=== PATIENT | male | born 1995 | race African-American/Black ===

== ENCOUNTER 2017-06-17 12:43 | Emergency (ER) | payer SELFPAY ==
[~2017-06-17] VITALS: Ht 188 cm; Wt 81.6 kg
--- NOTE | 2017-06-17 12:50 | PHYS DOC ---
Adult General Chief Complaint Chief Complaint: DENTAL PROBLEM HPI HPI Patient is a 22 year old M who presents with dental pain over the past 3-4 months with worsening over the past 2-3 weeks. He states that his pain is only present when eating or drinking. He has no pain at rest. He has no other associated symptoms. He has no other exacerbating or relieving factors. Review of Systems Review of Systems Constitutional: Denies fever or chills [] Eyes: Denies change in visual acuity, redness, or eye pain [] HENT: Denies nasal congestion or sore throat [] Respiratory: Denies cough or shortness of breath [] Cardiovascular: No additional information not addressed in HPI [] GI: Denies abdominal pain, nausea, vomiting, bloody stools or diarrhea [] : Denies dysuria or hematuria [] Musculoskeletal: Denies back pain or joint pain [] Integument: Denies rash or skin lesions [] Neurologic: Denies headache, focal weakness or sensory changes [] Endocrine: Denies polyuria or polydipsia [] All other systems were reviewed and found to be within normal limits, except as documented in this note. Family History Family History No pertinent family medical history reported Current Medications Current Medications Current medications reviewed Physical Exam Physical Exam Constitutional: Well developed, well nourished, no acute distress, non-toxic appearance. [] HENT: Normocephalic, atraumatic, poor dentition cavity was noted in the right lower molar without surrounding erythema or other signs of infection. No tenderness to palpation was noted Eyes: EOMI, conjunctiva normal, no discharge. [] Neck: Normal range of motion, no tenderness, supple, no stridor. [] Cardiovascular:Heart rate regular rhythm, Lungs & Thorax: Bilateral breath sounds clear to auscultation [] Extremities: No tenderness, no cyanosis, no clubbing, ROM intact, no edema. [] Neurologic: Alert and oriented X 3, normal motor function, normal sensory function, no focal deficits noted. [] Psychologic: Affect normal, judgement normal, mood normal. [] Current Patient Data Vital Signs Vital Signs Date Time Temp Pulse Resp B/P (MAP) Pulse Ox O2 Delivery O2 Flow Rate FiO2 06/17/17 12:53 97.5 55 16 100 Room Air EKG EKG [] Radiology/Procedures Radiology/Procedures [] Course & Med Decision Making Course & Med Decision Making Pertinent Labs and Imaging studies reviewed. (See chart for details) [] Dragon Disclaimer Dragon Disclaimer This electronic medical record was generated, in whole or in part, using a voice recognition dictation system. Departure Departure: Impression: Primary Impression: Simple dental cavity Disposition: HOME, SELF-CARE Condition: STABLE Patient Instructions: Dental Caries Additional Instructions: Jian was seen in the emergency department for dental pain. No emergency medical condition was found on history or physical exam. He was found to have a cavity. He was encouraged to follow up with a dentist as soon as possible for further management. LILIANA ROWLAND MD Jun 17, 2017 12:50
[2017-06-17 13:25] VITALS: BP 112/69
== END 2017-06-17 13:28 | disposition home or self-care (01) ==
LOC: ER 12:43
DX: K02.9 Dental caries, unspecified (principal)
CPT/HCPCS: 99281

== ENCOUNTER 2017-07-21 21:16 | Emergency (ER) | payer OTHER ==
[~2017-07-21] VITALS: Ht 185.4 cm; Wt 85.3 kg
--- NOTE | 2017-07-21 22:20 | PHYS DOC ---
Past History Past Medical History: No Pertinent History Past Surgical History: No Surgical History Alcohol Use: None Drug Use: None Adult General Chief Complaint Chief Complaint: LACERATION/AVULSION HPI HPI Patient is a 22 year old male who presents with complaint of injury to the right index finger. The patient accidentally cut the lateral tip of the right index finger while at work approximately 2 hours prior to arrival. Bleeding was controlled prior to arrival. The patient states he is up-to-date on tetanus. Patient denies any other injuries. Patient states that the wound is painful states he has full range of motion of the right index finger. Patient did not visualize any bone or tendon in the wound. Review of Systems Review of Systems Constitutional: Denies fever or chills [] Eyes: Denies change in visual acuity, redness, or eye pain [] HENT: Denies nasal congestion or sore throat [] Respiratory: Denies cough or shortness of breath [] Cardiovascular: Denies chest pain or edema[] GI: Denies abdominal pain, nausea, vomiting, bloody stools or diarrhea [] : Denies dysuria or hematuria [] Musculoskeletal: Denies back pain or joint pain [] Integument: Wound to right index finger[] Neurologic: Denies headache, focal weakness or sensory changes [] All other systems were reviewed and found to be within normal limits, except as documented in this note. Allergies Allergies Allergies Coded Allergies Type Severity Reaction Last Updated Verified No Known Drug Allergies 06/17/17 No Physical Exam Physical Exam Constitutional: Alert, afebrile, no acute distress. [] HENT: Normocephalic, atraumatic, bilateral external ears normal, oropharynx moist, no oral exudates, nose normal. [] Eyes: PERRLA, EOMI, conjunctiva normal, no discharge. [] Neck: Normal range of motion, no tenderness, supple, no stridor. [] Cardiovascular:Heart rate regular rhythm, no murmur [] Lungs & Thorax: Bilateral breath sounds clear to auscultation [] Abdomen: Bowel sounds normal, soft, no tenderness, no masses, no pulsatile masses. [] Skin: Warm, dry, no erythema, no rash. [] Back: No tenderness, no CVA tenderness. [] Extremities: Avulsion wound to the lateral aspect of right index finger measuring 2 x 1.5 cm, no visualized bone or tendon, No cyanosis, no clubbing, ROM intact, no edema. [] Neurologic: Alert and oriented X 3, normal motor function, normal sensory function, no focal deficits noted. [] Current Patient Data Vital Signs Vital signs were reviewed and are stable Lab Results Not performed EKG EKG Not performed[] Radiology/Procedures Radiology/Procedures Not performed[] Course & Med Decision Making Course & Med Decision Making Pertinent Labs and Imaging studies reviewed. (See chart for details) Patient has an avulsion injury which does not require suturing at this time. The x-ray was applied to the wound to help induce hemostasis. Patient's wound was treated and dressed in the emergency department. Patient prescribed Bactroban for continued outpatient treatment. Advised return to the emergency department for any worsening symptoms. Patient was understanding and agreement with treatment plan. Dragon Disclaimer Dragon Disclaimer This electronic medical record was generated, in whole or in part, using a voice recognition dictation system. Departure Departure: Impression: Primary Impression: Fingertip avulsion Disposition: HOME, SELF-CARE Condition: IMPROVED Referrals: PCP,UNKNOWN (PCP) Patient Instructions: Fingertip Injuries and Amputations Additional Instructions: Return to emergency department for any worsening symptoms. Scripts Mupirocin (MUPIROCIN) 22 Gm Oint...g. 1 MARCELO TP BID, #22 GM with dressing changes Prov: NIKKI GONZALEZ MD 07/21/17 Problem Qualifiers Primary Impression: Fingertip avulsion Encounter type: initial encounter Qualified Codes: S61.209A - Unspecified open wound of unspecified finger without damage to nail, initial encounter NIKKI GONZALEZ MD Jul 21, 2017 22:19
[2017-07-21] MEDS ORDERED: MUPI22OI2 TP (22:52)
[2017-07-21] MEDS ORDERED: MUPIROCIN 2% TOPICAL OINTMENT 22GM TUBE. TP ONE (23:09)
[2017-07-21] MEDS: MUPIROCIN 2% TOPICAL OINTMENT 22GM TUBE. TP ONE (23:10)
== END 2017-07-21 23:10 | disposition home or self-care (01) ==
LOC: ER 21:16
DX: S61.300A Unspecified open wound of right index finger with damage to nail, initial encounter (principal); W45.8XXA Other foreign body or object entering through skin, initial encounter; Y93.89 Activity, other specified; Y99.8 Other external cause status; Y92.89 Other specified places as the place of occurrence of the external cause
CPT/HCPCS: 99283

== ENCOUNTER 2018-01-07 10:22 | Emergency (ER) | payer SELFPAY ==
[~2018-01-07] VITALS: Ht 185.4 cm; Wt 81.6 kg
[~2018-01-07 10:22] MED LIST: MUPI22OI2 TP
[2018-01-07] MEDS ORDERED: IBUPROFEN 800 MG TABLET. PO ONE (11:08)
--- NOTE | 2018-01-07 11:25 | PHYS DOC ---
Past History Past Medical History: No Pertinent History Past Surgical History: No Surgical History Smoking: Non-smoker Alcohol Use: None Drug Use: None Adult General Chief Complaint Chief Complaint: headache, cough and congestion, fever [facility] HPI Patient is a 22 year old male who presents with complaining of headache, myalgia , subjective fever and chills, nonproductive cough, nausea and posttussive vomiting for the last 3 days. Patient states he had couple episodes of vomiting after cough and complaining of left lower chest wall pain during cough. He had [id number] Advil and NyQuil with mild improvement of his condition. Patient denies sick contact, diarrhea, urinary symptom, neck pain, sore throat and earache. Review of Systems Review of Systems Constitutional: Denies fever or chills [] Eyes: Denies change in visual acuity, redness, or eye pain [] HENT: Nasal congestion, denies sore throat Respiratory: Reports cough and shortness of breath Cardiovascular: No additional information not addressed in HPI [] GI: Denies abdominal pain, bloody stools or diarrhea, reports nausea and vomiting[] : Denies dysuria or hematuria [] Musculoskeletal: Denies back pain or joint pain [] Integument: Denies rash or skin lesions [] Neurologic: Reports headache, denies focal weakness or sensory changes [] Endocrine: Denies polyuria or polydipsia [] All other systems were reviewed and found to be within normal limits, except as documented in this note. Current Medications Current Medications Current Medications Medications (Trade) Dose Ordered Sig/Jeniffer Start Time Stop Time Status Last Admin Dose Admin Ibuprofen (Motrin) 800 mg STK-MED ONCE 01/07/18 11:08 01/07/18 11:09 DC Allergies Allergies Allergies Coded Allergies Type Severity Reaction Last Updated Verified No Known Drug Allergies 06/17/17 No Physical Exam Physical Exam Constitutional: Well developed, well nourished, mild distress, non-toxic appearance, afebrile. [] HENT: Normocephalic, atraumatic, bilateral external ears normal, oropharynx moist, pharyngeal erythema without enlarged tonsils, no oral exudates, nose normal. [] Eyes: PERRLA, EOMI, conjunctiva normal, no discharge. [] Neck: Normal range of motion, no tenderness, supple, no stridor. [] Cardiovascular:Heart rate regular rhythm, no murmur [] Lungs & Thorax: Bilateral breath sounds clear to auscultation [] Abdomen: Bowel sounds normal, soft, no tenderness, no masses, no pulsatile masses. [] Skin: Warm, dry, no erythema, no rash. [] Back: No tenderness, no CVA tenderness. [] Extremities: No tenderness, no cyanosis, no clubbing, ROM intact, no edema. [] Neurologic: Alert and oriented X 3, normal motor function, normal sensory function, no focal deficits noted. [] Psychologic: Affect normal, judgement normal, mood normal. [] Current Patient Data Vital Signs Vital Signs Date Time Temp Pulse Resp B/P (MAP) Pulse Ox O2 Delivery O2 Flow Rate FiO2 01/07/18 10:53 98.6 85 22 100 Room Air EKG EKG [] Radiology/Procedures Radiology/Procedures [] Course & Med Decision Making Course & Med Decision Making Pertinent Lab reviewed. (See chart for details) discharge: I've spoken with the patient and/or caregivers. I've explained the patient's condition, diagnosis and treatment plan based on information available to me at this time. I've answered the patient's and/or caregivers questions and addressed any concerns. The patient and/or caregivers have a good understanding the patient's diagnosis, condition and treatment plan as can be expected at this point. Vital signs have been stabilized. The patient's condition is stable for discharge from the emergency department. The patient will pursue further outpatient evaluation with her primary care provider or other designated consulting physician as outlined in the discharge instructions. Patient and/or caregivers are agreeable to this plan of care and follow-up instructions have been explained in detail. The patient and/or caregivers have received these instructions in written format and expressed understanding of these discharge instructions. The patient and her caregivers are aware that if any significant change in condition or worsening of symptoms should prompt him to immediately return to this of the closest emergency department. If an emergent department is not readily available I would encourage him to call 911. Shadi Disclaimer Shadi Disclaimer This electronic medical record was generated, in whole or in part, using a voice recognition dictation system. Departure Departure: Impression: Primary Impression: Upper respiratory infection, viral Disposition: HOME, SELF-CARE (at 1200) Condition: STABLE Referrals: PCP,NO (PCP) Patient Instructions: Upper Respiratory Infection, Adult Additional Instructions: Drink plenty of liquids Follow-up with your primary care physician in 3-5 days Return to ER if not getting better Scripts Benzonatate (TESSALON PERLE) 100 Mg Capsule 1 CAP PO TID for cough, #21 CAP Prov: KIA MENCHACA MD 01/07/18 Naproxen (NAPROSYN) 500 Mg Tablet 500 MG PO BID for pain, #20 TAB Prov: KIA MENCHACA MD 01/07/18 KIA MENCHACA MD Jan 07, 2018 11:25
[2018-01-07] MEDS ORDERED: IBUPROFEN 400 MG TABLET. PO ONE (11:30)
[2018-01-07 11:43] LABS: INFLUENZA A PATIENT NEGATIVE (NEGATIVE); INFLUENZA B PATIENT NEGATIVE (NEGATIVE)
[2018-01-07] MEDS ORDERED: BENZ100C PO (12:04)
[2018-01-07] MEDS ORDERED: NAPR-683 PO (12:04)
[2018-01-07 12:38] VITALS: BP 141/82
== END 2018-01-07 12:30 | disposition home or self-care (01) ==
LOC: ER 10:22
DX: J06.9 Acute upper respiratory infection, unspecified (principal); B97.89 Other viral agents as the cause of diseases classified elsewhere
CPT/HCPCS: 87804; 99283

== ENCOUNTER 2018-01-22 10:55 | Emergency (ER) | payer SELFPAY ==
[~2018-01-22] VITALS: Ht 185.4 cm; Wt 84.2 kg
[~2018-01-22 10:55] MED LIST changes: +BENZ100C PO; +NAPR-683 PO
[2018-01-22 11:06] VITALS: BP 132/74
[2018-01-22] MEDS ORDERED: SULF1TAB24 PO (11:16)
--- NOTE | 2018-01-22 11:16 | PHYS DOC ---
Past History Past Medical History: No Pertinent History Past Surgical History: No Surgical History Smoking: Non-smoker Alcohol Use: None Drug Use: None Adult General Chief Complaint Chief Complaint: INSECT BITE HPI HPI 22-year-old male presents with a "insect bite" he states there is an area on the right side of his lower abdomen that has been there for approximately about a week and has been leaking bloody purulent material. He states it doesn't hurt. He states his swelling has actually gone down. He denies any fever chills or sweats. He denies any other areas. He denies ever having anything like this in the past.[] Review of Systems Review of Systems Constitutional: Denies fever or chills [] Eyes: Denies change in visual acuity, redness, or eye pain [] HENT: Denies nasal congestion or sore throat [] Respiratory: Denies cough or shortness of breath [] Cardiovascular: No additional information not addressed in HPI [] GI: Denies abdominal pain, nausea, vomiting, bloody stools or diarrhea [] : Denies dysuria or hematuria [] Musculoskeletal: Denies back pain or joint pain [] Integument: Per history of present illness[] Neurologic: Denies headache, focal weakness or sensory changes [] Endocrine: Denies polyuria or polydipsia [] All other systems were reviewed and found to be within normal limits, except as documented in this note. Allergies Allergies Allergies Coded Allergies Type Severity Reaction Last Updated Verified No Known Drug Allergies 06/17/17 No Physical Exam Physical Exam Constitutional: Well developed, well nourished, no acute distress, non-toxic appearance. [] HENT: Normocephalic, atraumatic, bilateral external ears normal, oropharynx moist, no oral exudates, nose normal. [] Eyes: PERRLA, EOMI, conjunctiva normal, no discharge. [] Neck: Normal range of motion, no tenderness, supple, no stridor. [] Cardiovascular:Heart rate regular rhythm, no murmur [] Lungs & Thorax: Bilateral breath sounds clear to auscultation [] Abdomen: Bowel sounds normal, soft, no tenderness, no masses, no pulsatile masses. [] Skin: There is a 2 x 4 cm area with a central area that is opened and draining purulent material this is on his right side of his waistband.. [] Back: No tenderness, no CVA tenderness. [] Extremities: No tenderness, no cyanosis, no clubbing, ROM intact, no edema. [] Neurologic: Alert and oriented X 3, normal motor function, normal sensory function, no focal deficits noted. [] Psychologic: Affect normal, judgement normal, mood normal. [] Current Patient Data Vital Signs Vital Signs Date Time Temp Pulse Resp B/P (MAP) Pulse Ox O2 Delivery O2 Flow Rate FiO2 01/22/18 11:06 97.8 80 18 98 Room Air EKG EKG [] Radiology/Procedures Radiology/Procedures [] Impressions: abscess right lower abdomen Course & Med Decision Making Course & Med Decision Making Pertinent Labs and Imaging studies reviewed. (See chart for details) [] Dragon Disclaimer Dragon Disclaimer This electronic medical record was generated, in whole or in part, using a voice recognition dictation system. Departure Departure: Impression: Primary Impression: Abscess Disposition: 01 HOME, SELF-CARE Condition: STABLE Referrals: PCP,NO (PCP) Patient Instructions: Abscess Additional Instructions: Return to the emergency department with any new or concerning symptoms Scripts Sulfamethoxazole/Trimethoprim (BACTRIM DS TABLET) 1 Each Tablet 1 TAB PO BID for abscess, #20 TAB Prov: MARIO LONDON DO 01/22/18 MARIO LONDON DO Jan 22, 2018 11:16
== END 2018-01-22 11:20 | disposition home or self-care (01) ==
LOC: ER 10:55
DX: L02.211 Cutaneous abscess of abdominal wall (principal); W57.XXXA Bitten or stung by nonvenomous insect and other nonvenomous arthropods, initial encounter; Y93.89 Activity, other specified; Y92.89 Other specified places as the place of occurrence of the external cause; Y99.8 Other external cause status
CPT/HCPCS: 99283

== ENCOUNTER 2018-10-06 11:27 | Emergency (ER) | payer SELFPAY ==
[~2018-10-06] VITALS: Ht 188 cm; Wt 84.2 kg
[~2018-10-06 11:27] MED LIST changes: +SULF1TAB24 PO
[2018-10-06 11:35] VITALS: BP 135/56
[2018-10-06] MEDS ORDERED: PRED50TA PO (11:53)
[2018-10-06] MEDS ORDERED: NYST15CR TP (11:53)
--- NOTE | 2018-10-06 11:53 | PHYS DOC ---
Past History Past Medical History: No Pertinent History Past Surgical History: No Surgical History Smoking: Non-smoker Alcohol Use: None Drug Use: None Adult General Chief Complaint Chief Complaint: FOOT INJURY PAIN HPI HPI Patient is a 23-year-old male presents with itchy rash between his toes on both feet. This has been present for the past several weeks. Getting worse over time. Patient tried [id number] clotrimazole without any significant improvement. He had some nystatin which seemed to work better. There has been no drainage from the rash. No difficulty breathing. No fever. 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 He is exposed to warm, wet environments regularly. Symptoms are mild to moderate in intensity.[] Review of Systems Review of Systems Constitutional: Denies fever or chills [] Eyes: Denies change in visual acuity, redness, or eye pain [] HENT: Denies nasal congestion or sore throat [] Respiratory: Denies cough or shortness of breath [] Cardiovascular: No chest pain or palpitations[] GI: Denies abdominal pain, nausea, vomiting, bloody stools or diarrhea [] : Denies dysuria or hematuria [] Musculoskeletal: Denies back pain or joint pain [] Integument: See history of present illness[] Neurologic: Denies headache, focal weakness or sensory changes [] Endocrine: Denies polyuria or polydipsia [] All other systems were reviewed and found to be within normal limits, except as documented in this note. Allergies Allergies Allergies Coded Allergies Type Severity Reaction Last Updated Verified No Known Drug Allergies 06/17/17 No Physical Exam Physical Exam Constitutional: Well developed, well nourished, no acute distress, non-toxic appearance. [] HENT: Normocephalic, atraumatic, bilateral external ears normal, oropharynx moist, no oral exudates, nose normal. [] Eyes: PERRLA, EOMI, conjunctiva normal, no discharge. [] Neck: Normal range of motion, no tenderness, supple, no stridor. [] Cardiovascular:Heart rate regular rhythm, no murmur [] Lungs & Thorax: Bilateral breath sounds clear to auscultation [] Abdomen: Not examined. [] Skin: Warm, dry, no erythema, scaling rash between the toes on both feet. There is also similar areas of scaliness just inferior to the medial malleolus on the right foot. Some scaling also noted on bilateral hands, palmar aspect. Largest area of scaling is on his right foot, approximately 1.5 cm in diameter. There is no inguinal or axillary lymphadenopathy present.[] Back: No tenderness, no CVA tenderness. [] Extremities: No tenderness, no cyanosis, no clubbing, ROM intact, no edema. [] Neurologic: Alert and oriented X 3, normal motor function, normal sensory function, no focal deficits noted. [] Psychologic: Affect normal, judgement normal, mood normal. [] EKG EKG [] Radiology/Procedures Radiology/Procedures [] Course & Med Decision Making Course & Med Decision Making Pertinent Labs and Imaging studies reviewed. (See chart for details) Medical decision making and ED course: This appears to be tinea pedis and tinea manus. Most likely triggered by his work conditions, working in the hot, wet environment. Will treat with a very short course of steroids to help with the symptoms while antifungal medicines work longer-term. Discussed findings and plan with patient and family who voiced understanding. All questions were answered. He was discharged in improved condition.[] Dragon Disclaimer Dragon Disclaimer This electronic medical record was generated, in whole or in part, using a voice recognition dictation system. Departure Departure: Impression: Primary Impression: Tinea pedis of both feet Additional Impression: Tinea manus Disposition: 01 HOME, SELF-CARE Condition: STABLE Referrals: PCP,NO (PCP) Patient Instructions: [facility] Additional Instructions: Keep the areas as clean and dry as possible. On your days off wear sandals. Follow-up with your regular doctor in 2 days. Take the medication as prescribed. Return to the ER if worsening discomfort, fever of more than 101�, or any other concerns. Scripts Prednisone (PREDNISONE) 50 Mg Tablet 1 TAB PO DAILY for INFLAMMATION, #5 TAB Prov: MENDY MANCIA DO 10/06/18 Nystatin (NYSTATIN) 15 Gm Cream..g. 1 MARCELO TP TID for tinea infection, #30 GM Prov: MENDY MANCIA DO 10/06/18 Problem Qualifiers MENDY MANCIA DO Oct 06, 2018 11:53
== END 2018-10-06 11:55 | disposition home or self-care (01) ==
LOC: ER 11:27
DX: B35.3 Tinea pedis (principal); B35.2 Tinea manuum
CPT/HCPCS: 99283